=== PATIENT | female | born 1955 | race Caucasian/White ===

== ENCOUNTER 2017-06-24 09:47 | Emergency (ER) | payer OTHER ==
[~2017-06-24] VITALS: Ht 144.8 cm; Wt 78.0 kg
[~2017-06-24 09:47] MED LIST: COZA50TA PO; LACT20SO4; LASI20TA PO; NEXI40CA PO; [UNRECOGNIZED DRUG - OTHER]
[2017-06-24 09:52] VITALS: BP 187/91; PULSE 100; RESP 16; TEMP 98.1; O2SAT 99
--- NOTE | 2017-06-24 10:06 | PD ---
HPI Chief Complaint: Musculoskeletal Complaint Time Seen by Provider: 09:59 Travel History International Travel<30 days: No Contact w/Intl Traveler<30days: No Traveled to known affect area: No History of Present Illness HPI 62-year-old female with history of rheumatic fever, rheumatic arthritis, osteogenesis imperfecta, presents to the ER today for several days history of right knee pain that started on its own. She does not remember any injuries. She states it hurts with bending and flexing. She denies any fevers, sore throat, or any other symptoms. Modifying Factors: None Associated Signs & Symptoms: Right knee pain Risk Factors: Osteogenesis imperfecta PFSH Past Medical History Blood Disorders: No Cancer: No Cardiovascular Problems: Yes High Cholesterol: Yes Chemotherapy: No Diminished Hearing: No Endocrine: No GERD: Yes Genitourinary: No Headaches: No Hepatitis: No Hiatal Hernia: No Hypertension: Yes Immune Disorder: No Musculoskeletal: Yes (OSTEOGENESIS IMPREFECTA) Neurologic: No Psychiatric: No Reproductive: No Respiratory: No Migraines: No Radiation Therapy: No Seizures: No Ulcer: No ?: Not Past Surgical History Appendectomy: No Cholecystectomy: No Gynecologic Surgery: Yes (D & C) Pacemaker: No Social History Alcohol Use: Yes (QUIT LAST - WINE OR GIN) Tobacco Use: No Substance Use: No Allergies-Medications (Allergen,Severity, Reaction): Coded Allergies: penicillin G (Unverified Allergy, Mild, RASH, 06/24/17) Reported Meds & Prescriptions Reported Meds & Active Scripts Active No Active Prescriptions or Reported Medications Review of Systems Except as stated in HPI: all other systems reviewed are Neg Physical Exam Narrative GENERAL: Well-developed elderly white female patient currently in mild distress. Awake and oriented 3. SKIN: Focused skin assessment warm/dry. HEAD: Atraumatic. Normocephalic. EYES: Pupils equal and round. No scleral icterus. No injection or drainage. ENT: No nasal bleeding or discharge. Mucous membranes pink and moist. NECK: Trachea midline. No JVD. CARDIOVASCULAR: Regular rate and rhythm. No murmur appreciated. RESPIRATORY: No accessory muscle use. Clear to auscultation. Breath sounds equal bilaterally. GASTROINTESTINAL: Abdomen soft, non-tender, nondistended. Hepatic and splenic margins not palpable. MUSCULOSKELETAL: No obvious deformities. No clubbing. No cyanosis. No edema. EXTREMITIES: No clubbing, cyanosis, or edema. Right knee mildly tender to palpation without obvious crepitus or deformities, no effusion, or edema noted. No calf tenderness. Bilateral Homans sign negative. NEUROLOGICAL: Awake and alert. No obvious cranial nerve deficits. Motor grossly within normal limits. Normal speech. PSYCHIATRIC: Appropriate mood and affect; insight and judgment normal. Data Data Last Documented VS Vital Signs Date Time Temp Pulse Resp B/P (MAP) Pulse Ox O2 Delivery O2 Flow Rate FiO2 06/24/17 09:52 98.1 100 16 187/91 (123) 99 Orders Orders Knee, Complete (4vws) (06/24/17 09:59) Group A Rapid Strep Screen (06/24/17 10:02) Strep Culture (Group A) (06/24/17 10:15) MDM Medical Decision Making Medical Screen Exam Complete: Yes Emergency Medical Condition: Yes Medical Record Reviewed: Yes Interpretation(s) Last 24 hours Impressions Knee X-Ray 06/24/1759 Signed Impressions: Service Date/Time: Saturday, June 24, 2017 10:07 - CONCLUSION: Severe osteoarthritis, tiny knee joint effusion and enthesophyte/osteophyte fragment superior pole of the patella. Pierre Johnson MD Differential Diagnosis Right knee pain: Arthritis versus occult fracture versus gouty arthritis versus strep related arthropathy Narrative Course Rapid strep is negative. X-ray shows significant arthritis. At this point, I suspect that the symptoms may be secondary to arthritis. There are no signs of acute fractures. At this point, my plan would be to release the patient with symptomatic relief or pain. Patient is on ibuprofen which I think is appropriate for this issue. She should stay off of the leg for the next week. Return for any worsening in symptoms as needed. Follow-up with primary care doctor. The plan was discussed with her and she states understanding. Diagnosis Primary Impression: Arthritis of knee Scripts No Active Prescriptions or Reported Meds Disposition: 01 DISCHARGE HOME Condition: Stable Jackie Burrell MD Jun 24, 2017 10:06
--- NOTE | 2017-06-24 10:20 | RADRPT ---
EXAM DATE/TIME: 06/24/2017 10:07 [facility] COMPARISON: No previous studies available for comparison. INDICATIONS : Right knee pain & swelling with no known injuries. MEDICAL HISTORY : Hypercholesterolemia. Hypertension Gastroesophageal reflux disease. Osteogeneis imperfecta. Jaund ice.Liver disease, Rheumatic arthritis. SURGICAL HISTORY : Right ACL repair. D& C, ENCOUNTER: Initial ACUITY: 3 days PAIN SCORE: 7/10 LOCATION: Right knee FINDINGS: There is severe osteoarthritis of the knee greatest at the medial tibiofemoral compartment. Sclerosis , marginal osteophytosis and joint space narrowing identified. Trace knee joint effusion. Enthesophyt e formation at the quadriceps insertion of the patella with a small ossific fragment at this level co nsistent with a small fractured osteophyte. This is age-indeterminate. CONCLUSION: Severe osteoarthritis, tiny knee joint effusion and enthesophyte/osteophyte fragment superior pole of the patella. Pierre Johnson MD on June 24, 2017 at 10:17 Board Certified Radiologist. This report was verified electronically.
[2017-06-24 10:56] VITALS: BP 138/79; PULSE 84; RESP 16; O2SAT 94
== END 2017-06-24 10:59 | disposition home or self-care (01) ==
LOC: PHED 09:47
DX: M17.11 Unilateral primary osteoarthritis, right knee (principal); I10 Essential (primary) hypertension; E78.00 Pure hypercholesterolemia, unspecified; Z86.79 Personal history of other diseases of the circulatory system; Z87.39 Personal history of other diseases of the musculoskeletal system and connective tissue; Z87.19 Personal history of other diseases of the digestive system
CPT/HCPCS: 73564; 87081; 87880; 99284